=== PATIENT | female | born 1990 | race Caucasian/White ===

== ENCOUNTER 2017-09-18 01:00 | Emergency (ER) | payer MEDICAID ==
[~2017-09-18 01:00] MED LIST: PREN1CAP30 PO
--- NOTE | 2017-09-18 01:45 | PD ---
HPI Chief Complaint Contractions Date Seen: Sep 18, 2017 Time Seen: 01:41 Travel History International Travel<30 Days: No Contact w/Intl Traveler<30Days: No Known Affected Area: No History of Present Illness HPI 27-year-old who is at 36 weeks and 3 days complains of contractions off and on for the past 2 days. As they were persistent today she decided to come in for cervical check. Her last examination was Friday and cervix was 1 cm at that time. She's had a previous section and she is planning on a repeat elective section at term. She denies any antepartum complications Weeks Gestation: 36 (36.3) Para: 1 : 5 Miscarriage: 1 : 1 History Past Medical History Medical History: Denies Significant Hx Obstetric History Obstetric History section for failure to progress delivered at [facility] Past Surgical History Narrative Surgical Family History Family History: Negative Social History Alcohol Use: No Tobacco Use: Yes Substance Abuse: No Allergies-Medications (Allergen,Severity, Reaction): Coded Allergies: metronidazole (Unverified Allergy, Mild, NAUSEA/VOMITING, 09/15/17) Home Meds Active Scripts Without A W/Fe Fum-Fe (Provida Dha 16-16-1.25-110 mg) 1 Cap Cap, 1 TAB PO DAILY, #30 BOTTLE 11 Refills Prov:Kamryn Arnett 04/30/17 Review of Systems Except as stated in HPI: all other systems reviewed are Neg Physical Exam Narrative GENERAL: Well-nourished, well-developed patient. SKIN: Warm and dry. HEAD: Normocephalic and atraumatic. EYES: No scleral icterus. No injection or drainage. ENT: No nasal drainage noted. Mucous membranes pink. Airway patent. NECK: Supple, trachea midline. No JVD. CARDIOVASCULAR: Regular rate and rhythm without murmurs, gallops, or rubs. RESPIRATORY: Breath sounds equal bilaterally. No accessory muscle use. ABDOMEN/GI: Abdomen soft, non-tender, bowel sounds present, no rebound, no guarding Gravid to [36-] weeks size Fundal Height: [-] GENITOURINARY: External Genitalia: intact and normal in appearance BUS glands: [Normal-] Cervix: [-Posterior] Dilatation: [1-] Effacement: [-50] Station: [-3-] Presentation: [-Vertex] Membranes: [intact ] Uterine Contractions: [-Irregular] FHT's: Category: [1-] Baseline: [140-] Reactive: [Moderate-] Variability: [Moderate-] Decels: [Absent-] EXTREMITIES: No cyanosis or edema. BACK: Nontender without obvious deformity. No CVA tenderness. NEUROLOGICAL: Awake and alert. Motor and sensory grossly within normal limits. Five out of 5 muscle strength in all muscle groups. Normal speech. Data Data Vital Signs Reviewed: Yes [facility] Medical Record Reviewed: Yes Plan 27-year-old G at 36 weeks and 3 days with false labor, no cervical change since her exam on Friday She has an appointment for a consultation to set up for repeat Next appointment is next week on Diagnosis Diagnosis: Primary Impression: False labor before 37 completed weeks of gestation Additional Impressions: 36 weeks gestation of Previous section complicating , antepartum condition or complication Disposition: DISCHARGE HOME Barb Cabrera MD Sep 18, 2017 01:45
== END 2017-09-18 01:57 | disposition home or self-care (01) ==
LOC: HOBED 01:00
DX: O47.03 False labor before 37 completed weeks of gestation, third trimester (principal); O99.333 Smoking (tobacco) complicating pregnancy, third trimester; O34.219 Maternal care for unspecified type scar from previous cesarean delivery; Z3A.36 36 weeks gestation of pregnancy
CPT/HCPCS: 99281

== ENCOUNTER 2017-09-30 07:02 | Inpatient (IN) | payer MEDICAID ==
[~2017-09-30] VITALS: Ht 147.3 cm; Wt 55.0 kg
[2017-09-30] VITALS (9 sets, daily range): BP systolic 110–119; BP diastolic 63–80; PULSE 74–107; RESP 19
[2017-09-30] MEDS ORDERED: LACTATED RINGER'S 1000 ML INJ 1,000 ML IV PRN (07:44)
[2017-09-30] MEDS ORDERED: LACTATED RINGER'S 1000 ML INJ 1,000 ML IV SCH (07:44)
[2017-09-30] MEDS ORDERED: LIDOCAINE HCL 1% 50 ML VIAL INFIL PRN (07:45)
[2017-09-30] MEDS ORDERED: ONDANSETRON HCL 4 MG/2 ML VIAL IV PUSH PRN (07:45)
[2017-09-30] MEDS ORDERED: LIDOCAINE HCL 1% 50 ML VIAL I-DERMAL PRN (07:45)
[2017-09-30] MEDS ORDERED: OXYTOCIN 30 UNITS-500ML PREMIX 500 ML IV ONE (07:45)
[2017-09-30] MEDS ORDERED: CITRIC ACID-SODIUM CITRATE LIQ 30 ML UDC PO SCH (07:45)
[2017-09-30] MEDS ORDERED: MINERAL OIL 10 ML VIAL TOPICAL PRN (07:45)
[2017-09-30] MEDS ORDERED: SODIUM CHLORID 0.9% 500 ML INJ 500 ML IV PRN (07:45)
--- NOTE | 2017-09-30 08:02 | PD ---
HPI Chief Complaint ctx Date Seen: Sep 30, 2017 Time Seen: 07:48 Travel History International Travel<30 Days: No Contact w/Intl Traveler<30Days: No Known Affected Area: No History of Present Illness HPI Pt is a 27y/o @ 38.1wks. She has PNC at [facility]. She presents with c/o ctx which started after midnight. They initially were every 20m and have become increasingly more frequent. She has a h/o CSx1 in 2010. She is unsure on vs rCS. Weeks Gestation: 38 Para: 1 : 2 History Past Medical History Medical History: Denies Significant Hx Obstetric History Obstetric History 1. CS @ term (pt states she was 7cm for 1hr and was told by she needed a c/s ) 2. current Past Surgical History Narrative Surgical CS x1 wisdom tooth extraction Family History Family History: Negative Social History Alcohol Use: No Tobacco Use: No Substance Abuse: No Allergies-Medications (Allergen,Severity, Reaction): Coded Allergies: metronidazole (Unverified Allergy, Mild, NAUSEA/VOMITING, 09/15/17) Home Meds Active Scripts Without A W/Fe Fum-Fe (Provida Dha 16-16-1.25-110 mg) 1 Cap Cap, 1 TAB PO DAILY, #30 BOTTLE 11 Refills Prov:Kamryn Arnett 04/30/17 Review of Systems Except as stated in HPI: all other systems reviewed are Neg Physical Exam Narrative General: well developed, well nourished, no acute distress HEENT: normocephalic atraumatic, extraocular movements intact, neck supple Abdomen: soft, gravid, nontender, nondistended Uterus: fundus term Extremities: full range of motion Skin: normal coloration, no rashes, no suspicious skin lesions noted Neurologic: cranial nerves 2-12 grossly intact, normal muscle tone, normal gait Psychiatric: normal mood and affect, appropriate FHTs: 145, occasional variables, moderate variability, non-reactive [place]: ctx q3-6m Cvx: 4/100/-1 Data Data Vital Signs Reviewed: Yes Orders Orders Ob (2e) Additional Admit Info (09/30/17 07:42) Vital Signs (Adult) .ON ADMISSION (09/30/17 07:44) ^ Labor Status (09/30/17 07:44) ^ Non Stress Test (09/30/17 07:44) Admit To Inpatient (09/30/17 ) Vital Signs (Adult) .Per protocol (09/30/17 07:44) Heart (09/30/17 07:44) Amnioinfusion (09/30/17 07:44) Urinary Catheter Management .ONCE (09/30/17 07:44) Diet Liquid (09/30/17 Breakfast) Lactated Ringer's 1000 Ml Inj (Lr 1000 M (09/30/17 07:44) Lactated Ringer's 1000 Ml Inj (Lr 1000 M (09/30/17 07:44) Sodium Chlorid 0.9% 500 Ml Inj (Ns 500 M (09/30/17 07:45) Sodium Chlor 0.9% 1000 Ml Inj (Ns 1000 M (09/30/17 08:04) Lidocaine 1% Inj (50 Ml) (Xylocaine 1% I (09/30/17 07:45) Citric Acid-Sodium Citrate Liq (Bicitra (09/30/17 07:45) Ondansetron Inj (Zofran Inj) (09/30/17 07:45) Fentanyl Inj (Fentanyl Inj) (09/30/17 07:45) Fentanyl Inj (Fentanyl Inj) (09/30/17 07:45) Complete Blood Count With Diff (09/30/17 07:44) Hold Clot (09/30/17 07:44) Abo/Rh Blood Type (09/30/17 07:44) Urinalysis - C+S If Indicated (09/30/17 07:44) Drug Screen, Random Urine (09/30/17 07:44) Resp Oxygen Non Rebreathe Mask (09/30/17 ) ^ Epidural / Intrathecal Infus (09/30/17 07:44) Oxytocin 30 Units-500ml Premix (Pitocin (09/30/17 07:45) Lidocaine 1% Inj (50 Ml) (Xylocaine 1% I (09/30/17 07:45) Light Mineral Oil (Muri-Lube Oil) (09/30/17 07:45) Inpatient Certification (09/30/17 ) Group B Strep: Negative MDM Plan 27y/o @ 38.1wks in active labor with h/o CS x1 -- admit for: -- analgesia: epidural PRN -- GBS: neg Counseling: Pt counseled on R/B/A of rCS vs . For pt aware of <1% risk of uterine rupture which is associated with high risk of neurological compromise or and risk of maternal hemorrhage or . Discussed need for continued monitoring in labor. Discussed highest chance of successful if spontaneous labor. She voiced understanding. Diagnosis Diagnosis: Primary Impression: 38 weeks gestation of Additional Impressions: Uterine contractions during History of delivery, currently Nabil Mcgee MD Sep 30, 2017 08:02
[2017-09-30] MEDS ORDERED: SODIUM CHLOR 0.9% 1000 ML INJ 1,000 ML IV PRN (08:04)
[2017-09-30 08:50] LABS: AUTOMATED NEUTROPHIL # 13.5 TH/MM3 (1.8-7.7); BASOPHIL # 0.1 TH/MM3 (0-0.2); BASOPHIL % 0.7 % (0.0-2.0); EOSINOPHIL # 0.2 TH/MM3 (0-0.4); EOSINOPHIL % 1.3 % (0.0-4.0); HEMATOCRIT 35.7 % (35.0-46.0); HEMOGLOBIN 12.3 GM/DL (11.6-15.3); LYMPH % 14.1 % (9.0-44.0); LYMPHOCYTE # 2.4 TH/MM3 (1.0-4.8); MEAN CORPUSCULAR HEMOGLOBIN 32.6 PG (27.0-34.0); MEAN CORPUSCULAR HGB CONC 34.4 % (32.0-36.0); MEAN PLATELET VOLUME 9.3 FL (7.0-11.0); MONO % 5.6 % (0.0-8.0); NEUT % 78.3 % (16.0-70.0); PLATELET COUNT 285 TH/MM3 (150-450); RED BLOOD COUNT 3.76 MIL/MM3 (4.00-5.30); RED CELL DISTRIBUTION WIDTH 14.2 % (11.6-17.2); WHITE BLOOD COUNT 17.2 TH/MM3 (4.0-11.0)
[2017-09-30 08:53] LABS: BACTERIA, URINE RARE /hpf; BILIRUBIN, URINE NEG (NEG); BLOOD, URINE MOD (NEG); GLUCOSE,URINE NEG (NEG); HYALINE CAST, URINE 1 /lpf (RARE); KETONE, URINE NEG (NEG); MUCUS URINE FEW /lpf (OCC); NITRITE,URINE NEG (NEG); PH, URINE 6.5 (5.0-8.5); SQUAMOUS EPITHELIAL CELL URINE 5 /hpf (0-5); TRANSITIONAL EPI CELLS, URINE <1 /hpf; URINE COLOR YELLOW (YELLW/STRAW); URINE LEUKOCYTE ESTERASE MOD (NEG); WHITE BLOOD CELL CLUMPS RARE
[2017-09-30] MEDS ORDERED: fentaNYL 2MCG-BUPIV 0.125% INJ 100 ML ONE (09:14)
[2017-09-30] MEDS ORDERED: NO SYSTEM NARCOTICS PRN (10:45)
[2017-09-30] MEDS ORDERED: ePHEDrine/NS 25 MG/5 ML SYRINGE IV PUSH PRN (10:45)
[2017-09-30] MEDS ORDERED: fentaNYL 2MCG-BUPIV 0.125% 100 ML EPIDURAL SCH (10:45)
[2017-09-30] MEDS ORDERED: DO NOT ADMINISTER ANTICOAGULANTS PRN (10:45)
--- NOTE | 2017-09-30 11:25 | HHI.HP ---
HPI Chief Complaint labor, Date Seen: Sep 30, 2017 (Laura Carreon MD R2) Travel History International Travel<30 Days: No Contact w/Intl Traveler<30Days: No (Laura Carreon MD R2) History of Present Illness HPI Pt is a 27y/o @ 38.1wks. She has PNC at [facility]. She presents with c/o ctx which started after midnight. They initially were every 20m and have become increasingly more frequent. She has a h/o CSx1 in 2010. She is unsure on vs rCS. Weeks Gestation: 38 Weeks Gestation: 1 Para: 5 (Laura Carreon MD R2) History Obstetric History Obstetric History 2SAB 1EAB CS @ term (pt states she was 7cm for 1hr and was told by MD she needed a c/s) (Laura Carreon MD R2) Past Surgical History Narrative Surgical CS x1 wisdom tooth extraction (Laura Carreon MD R2) Family History Family History: Negative (Laura Carreon MD R2) Social History Alcohol Use: No Tobacco Use: No Substance Abuse: No (Laura Carreon MD R2) Allergies-Medications (Allergen,Severity, Reaction): Coded Allergies: metronidazole (Unverified Allergy, Mild, NAUSEA/VOMITING, 09/30/17) Home Meds Discontinued Scripts Without A W/Fe Fum-Fe (Provida Dha 16-16-1.25-110 mg) 1 Cap Cap, 1 TAB PO DAILY, #30 BOTTLE 11 Refills Prov:Kamryn Arnett 04/30/17 Review of Systems Except as stated in HPI: all other systems reviewed are Neg (Laura Carreon MD R2) Physical Exam Vital Signs Date Time Temp Pulse Resp B/P (MAP) Pulse Ox O2 Delivery O2 Flow Rate FiO2 09/30/17 09:35 18 09/30/17 08:10 99 09/30/17 08:06 103 119/76 (90) 09/30/17 08:05 107 09/30/17 08:00 86 Narrative General: well developed, well nourished, no acute distress HEENT: normocephalic atraumatic, extraocular movements intact, neck supple Abdomen: soft, gravid, nontender, nondistended Uterus: fundus term Extremities: full range of motion Skin: normal coloration, no rashes, no suspicious skin lesions noted Neurologic: cranial nerves 2-12 grossly intact, normal muscle tone, normal gait Psychiatric: normal mood and affect, appropriate FHTs: 140s, occasional variables, moderate variability, non-reactive [place]: ctx q3-6m Cvx: 5-6/100/-1 (Laura Carreon MD R2) Caprini VTE Risk Assessment Caprini VTE Risk Assessment: Mod/High Risk (score >= 2) () Caprini Risk Assessment Model Point Value = 1 Point Value = 2 Point Value = 3 Point Value = 5 Age 41-60 Minor surgery BMI > 25 kg/m2 Swollen legs Varicose veins or History of unexplained or recurrent spontaneous Oral contraceptives or hormone replacement Sepsis (< 1 month) Serious lung disease, including pneumonia (< 1 month) Abnormal pulmonary function Acute myocardial infarction Congestive heart failure (< 1 month) History of inflammatory bowel disease Medical patient at bed rest Age 61-74 Arthroscopic surgery Major open surgery (> 45 min) Laparoscopic surgery (> 45 min) Malignancy Confined to bed (> 72 hours) Immobilizing plaster cast Central venous access Age >= 75 History of VTE Family history of VTE Factor V Leiden Prothrombin [id number] Lupus anticoagulant Anticardiolipin antibodies Elevated serum homocysteine Heparin-induced thrombocytopenia Other congenital or acquired thrombophilia Stroke (< 1 month) Elective arthroplasty Hip, pelvis, or leg fracture Acute spinal cord injury (< 1 month) Prophylaxis Regimen Total Risk Factor Score Risk Level Prophylaxis Regimen 0-1 Low Early ambulation 2 Moderate Order ONE of the following: *Sequential Compression Device (SCD) *Heparin 5000 units SQ BID 3-4 Higher Order ONE of the following medications: *Heparin 5000 units SQ TID *Enoxaparin/Lovenox 40 mg SQ daily (WT < 150 kg, CrCl > 30 mL/min) *Enoxaparin/Lovenox 30 mg SQ daily (WT < 150 kg, CrCl > 10-29 mL/min) *Enoxaparin/Lovenox 30 mg SQ BID (WT < 150 kg, CrCl > 30 mL/min) AND/OR *Sequential Compression Device (SCD) 5 or more Highest Order ONE of the following medications: *Heparin 5000 units SQ TID (Preferred with Epidurals) *Enoxaparin/Lovenox 40 mg SQ daily (WT < 150 kg, CrCl > 30 mL/min) *Enoxaparin/Lovenox 30 mg SQ daily (WT < 150 kg, CrCl > 10-29 mL/min) *Enoxaparin/Lovenox 30 mg SQ BID (WT < 150 kg, CrCl > 30 mL/min) AND *Sequential Compression Device (SCD) (Laura Carreon MD R2) Data Data Vital Signs Reviewed: Yes (wnl) Orders Orders Ob (2e) Additional Admit Info (09/30/17 07:42) Vital Signs (Adult) .ON ADMISSION (09/30/17 07:44) ^ Labor Status (09/30/17 07:44) ^ Non Stress Test (09/30/17 07:44) Admit To Inpatient (09/30/17 ) Vital Signs (Adult) .Per protocol (09/30/17 07:44) Heart (09/30/17 07:44) Amnioinfusion (09/30/17 07:44) Urinary Catheter Management .ONCE (09/30/17 07:44) Diet Liquid (09/30/17 Breakfast) Lactated Ringer's 1000 Ml Inj (Lr 1000 M (09/30/17 07:44) Lactated Ringer's 1000 Ml Inj (Lr 1000 M (09/30/17 07:44) Sodium Chlorid 0.9% 500 Ml Inj (Ns 500 M (09/30/17 07:45) Sodium Chlor 0.9% 1000 Ml Inj (Ns 1000 M (09/30/17 08:04) Lidocaine 1% Inj (50 Ml) (Xylocaine 1% I (09/30/17 07:45) Citric Acid-Sodium Citrate Liq (Bicitra (09/30/17 07:45) Ondansetron Inj (Zofran Inj) (09/30/17 07:45) Fentanyl Inj (Fentanyl Inj) (09/30/17 07:45) Fentanyl Inj (Fentanyl Inj) (09/30/17 07:45) Complete Blood Count With Diff (09/30/17 07:44) Hold Clot (09/30/17 07:44) Abo/Rh Blood Type (09/30/17 07:44) Urinalysis - C+S If Indicated (09/30/17 07:44) Drug Screen, Random Urine (09/30/17 07:44) Resp Oxygen Non Rebreathe Mask (09/30/17 ) ^ Epidural / Intrathecal Infus (09/30/17 07:44) Oxytocin 30 Units-500ml Premix (Pitocin (09/30/17 07:45) Lidocaine 1% Inj (50 Ml) (Xylocaine 1% I (09/30/17 07:45) Light Mineral Oil (Muri-Lube Oil) (09/30/17 07:45) Inpatient Certification (09/30/17 ) Urine Culture (09/30/17 07:15) Fentanyl 2mcg-Bupiv 0.125% Inj (Fentanyl (09/30/17 09:14) ^ Place On Chart (09/30/17 ) ^ Medication Indications (09/30/17 ) Consent (09/30/17 ) ^ No Systemic Narcotics (09/30/17 ) ^ Call Anesthesiologist (09/30/17 ) ^ Discontinue Epidural Cathete (09/30/17 ) Anticoagulant Alert (09/30/17 ) ^ Epidural Alert (09/30/17 ) Misc Nursing Information (09/30/17 10:45) Misc Nursing Information (09/30/17 10:45) Fentanyl Inj (Fentanyl Inj) (09/30/17 10:45) Fentanyl 2mcg-Bupiv 0.125% Inj (Fentanyl (09/30/17 10:45) Ephedrine/Ns 25 Mg/5 Ml Syr (Ephedrine/N (09/30/17 10:45) Labs Laboratory Tests Test 09/30/17 07:15 09/30/17 07:50 Urine Color YELLOW Urine Turbidity CLEAR Urine pH 6.5 Urine Specific [place] 1.018 Urine Protein TRACE Urine Glucose (UA) NEG Urine Ketones NEG Urine Occult Blood MOD Urine Nitrite NEG Urine Bilirubin NEG Urine Urobilinogen LESS THAN 2.0 Urine Leukocyte Esterase MOD Urine RBC 4 Urine WBC 9 Urine WBC Clumps RARE Urine Squamous Epithelial Cells 5 Urine Transitional Epithelial Cells <1 Urine Bacteria RARE Urine Hyaline Casts 1 Urine Mucus FEW Microscopic Urinalysis Comment CULTURE INDICATED Urine Opiates Screen NEG Urine Barbiturates Screen NEG Urine Amphetamines Screen NEG Urine Benzodiazepines Screen NEG Urine Cocaine Screen NEG Urine Cannabinoids Screen POS White Blood Count 17.2 Red Blood Count 3.76 Hemoglobin 12.3 Hematocrit 35.7 Mean Corpuscular Volume 95.0 Mean Corpuscular Hemoglobin 32.6 Mean Corpuscular Hemoglobin Concent 34.4 Red Cell Distribution Width 14.2 Platelet Count 285 Mean Platelet Volume 9.3 Neutrophils (%) (Auto) 78.3 Lymphocytes (%) (Auto) 14.1 Monocytes (%) (Auto) 5.6 Eosinophils (%) (Auto) 1.3 Basophils (%) (Auto) 0.7 Neutrophils # (Auto) 13.5 Lymphocytes # (Auto) 2.4 Monocytes # (Auto) 1.0 Eosinophils # (Auto) 0.2 Basophils # (Auto) 0.1 CBC Comment DIFF FINAL Differential Comment Date/Time Source Procedure Growth Status 09/30/17 07:15 Urine Clean Catch Urine Culture Pending Received (Laura Carreon MD R2) Assessment/Plan Assessment and Plan 27 y/o [id number] @ 38.1 weeks in active labor with h/o CS x1. Intrauterine Routine antepartum care Analgesia: epidural PRN Rubella NON-IMMUNE GBS: neg RUQ pain early : work-up with labs negative. US showing normal gallbladder and ducts, has non-obstructing stone Tobacco use complicating Hx CS desiring vaginal delivery Expect vaginal delivery Admitted in spontaneous labor Counseling: Pt counseled on R/B/A of rCS vs . For pt aware of <1% risk of uterine rupture which is associated with high risk of neurological compromise or and risk of maternal hemorrhage or . Discussed need for continued monitoring in labor. Discussed highest chance of successful if spontaneous labor. She voiced understanding at time of admission. Discharge Planning 1-3 days after delivery (Laura Carreon MD R2) Attending Attestation Patient seen and evaluated with resident under direct supervision, agree with assessment and plan. (Howard Lambert MD) Laura Carreon MD R2 Sep 30, 2017 11:25 Howard Lambert MD Sep 30, 2017 12:47
--- NOTE | 2017-09-30 14:40 | PD.LABORPN ---
Subjective Subjective AROM @1428 Objective Vital Signs Vital Signs Date Time Temp Pulse Resp B/P (MAP) Pulse Ox O2 Delivery O2 Flow Rate FiO2 09/30/17 12:25 74 09/30/17 12:20 78 09/30/17 12:15 78 110/63 (79) 09/30/17 12:15 78 09/30/17 09:35 18 09/30/17 08:10 99 09/30/17 08:06 103 119/76 (90) 09/30/17 08:05 107 09/30/17 08:00 86 Objective Pelvic Exam: Cervix: midline Dilatation: 9-10 Effacement: 100% Station: 0 Presentation: Vertex Membranes: Ruptured Uterine Contractions: Every 3 -5 minutes FHT's: Category: 1 Baseline: 150 Reactive: Yes Variability: Moderate Decels: None Weeks Gestation: 1 Artificial ROM date: Sep 30, 2017 Artifical ROM time: 14:28 Assessment/Plan Assessment and Plan Expectant management Melyssa García Dr., MD R1 Sep 30, 2017 14:40
[2017-09-30] MEDS ORDERED: DIPHTH/TETANUS/ACEL PERTUSSIS (BOOSTER) 0.5 ML VIAL/PFS IM ONE (16:00)
[2017-09-30] MEDS ORDERED: MEASLES, MUMPS, RUBELLA VACCINE 0.5 ML VIAL SQ ONE (16:00)
--- NOTE | 2017-09-30 17:13 | PD.OB.DELI ---
Weeks gestation: 38 Artificial ROM date: Sep 30, 2017 Artifical ROM time: 14:28 Anesthesia: Epidural Episiotomy: None Vaginal Delivery: Normal, Spontaneous, Presentation: Occiput anterior, Vertex Nuchal Cord: x1 Delayed cord clamping (45 sec): Yes : Male, Single Delivery date: Sep 30, 2017 Delivery time: 16:47 One Minute : 9 Five Minute : 9 Weight: 2785 Placenta: Spontaneous delivery, Intact, Cord pH Laceration: Vaginal laceration (2 lacerations, one at 11 o'clock and one at 2' o clock), 1 deg (labial laceration) Repair: Vicryl interrupted Estimated blood loss: 250 Additional Information At 1647, this 27 y/o , now P3, delivered vaginally under epidural anesthesia. was delivered after Mom gave adequate pushing with contractions. There was a loose nuchal cord x1. was placed on patient's abdomen after delivery. The cord was clamped and cut after 45 seconds. Placenta was delivered intact w/normal 3 vessel cord within 30 min. Sample of blood was obtained for blood cord gas. Fundus was firm with massage and IV Pit. There were only 2 superficial vaginal lacerations (one at 11'oclock, one at 2 o'clock) . One stitch was placed w/3-0 vicryl at 11-o'clock. Blood estimation was about 250 cc. Male weighs 2785 g, and scores are 9/9. Both mom and are recovering well. Dr. Lambert was present for delivery and Dr. Reyes assisted w/delivery. (Melyssa Reyes MD R1) Additional Information Patient seen and evaluated with resident under direct supervision, agree with assessment and plan. (Howard Lambert MD) Melyssa Reyes MD R1 Sep 30, 2017 17:13 Howard Lambert MD Sep 30, 2017 19:19
[2017-09-30] MEDS ORDERED: ACETAMINOPHEN 325 MG TAB PO PRN (17:30)
[2017-09-30] MEDS ORDERED: ONDANSETRON ODT 4 MG TAB PO PRN (17:30)
[2017-09-30] MEDS ORDERED: SODIUM CHLORIDE 0.9% FLUSH 10 ML FLUSH IV FLUSH PRN (17:30)
[2017-09-30] MEDS ORDERED: OXYTOCIN 30 UNITS-500ML PREMIX 500 ML IV SCH (17:30)
[2017-09-30] MEDS ORDERED: ZOLPIDEM TARTRATE 5 MG TAB PO PRN (17:30)
[2017-09-30] MEDS ORDERED: ALUMINUM/MAGNESIUM/SIMETH 30 ML CUP PO PRN (17:30)
[2017-09-30] MEDS ORDERED: SODIUM CHLORIDE 0.9% FLUSH 10 ML FLUSH IV FLUSH SCH (21:00)
[2017-09-30] MEDS: IBUPROFEN 800 MG TAB PO PRN (22:05)
[2017-10-01] MEDS: BENZOCAINE 20% TOPICAL SPRAY 60 ML CAN TOPICAL PRN (03:00)
[2017-10-01] MEDS: WITCH HAZEL 50%/GLYCERIN 12.5% 40 PAD JAR TOPICAL PRN (03:00)
[2017-10-01 08:00] VITALS: BP 103/59; PULSE 72; RESP 16; TEMP 98
[2017-10-01] MEDS: IBUPROFEN 800 MG TAB PO PRN ×2 (08:01→16:17)
--- NOTE | 2017-10-01 08:57 | HHI.OB ---
Subjective Post Day: 1 Remarks day #1. AFVSS overnight. Pain controlled. Decreased lochia. Denies dysuria. No breast tenderness. She is feeding the baby via breast. Appetite good. No nausea or vomiting. + flatus. Ambulating well. Denies calf pain, shortness of breath, or cough. Otherwise, she is doing well this morning and has no other complaints. (Laura Carreon MD R2) Remarks Patient seen and evaluated with resident under direct supervision, agree with assessment and plan. (Howard Lambert MD) Objective Vitals/I&O Vital Signs Date Time Temp Pulse Resp B/P (MAP) Pulse Ox O2 Delivery O2 Flow Rate FiO2 10/01/17 08:00 72 103/59 (74) 10/01/17 08:00 98.0 16 09/30/17 19:17 19 09/30/17 19:00 88 117/80 (92) 09/30/17 12:25 74 09/30/17 12:20 78 09/30/17 12:15 78 110/63 (79) 09/30/17 12:15 78 09/30/17 10:00 18 09/30/17 09:35 18 Objective Remarks GENERAL: Well-nourished, well-developed female. CARDIOVASCULAR: Regular rate and rhythm without murmurs, gallops, or rubs. RESPIRATORY: Breath sounds equal bilaterally. No accessory muscle use. ABDOMEN/GI: Abdomen soft, non-tender. Fundus: Firm, non-tender at umbilicus. GENITOURINARY: Light to moderate bleeding. EXTREMITIES: No cyanosis or edema, non-tender, without signs of DVT. Medications and IVs Current Medications Medications (Trade) Dose Ordered Sig/Miky Route Start Time Stop Time Status Last Admin Lactated Ringer's 1,000 ml @ 125 mls/hr Q8H IV 09/30/17 07:44 09/30/17 08:44 Lactated Ringer's 1,000 ml @ 3,000 mls/hr Q20M PRN IV 09/30/17 07:44 Sodium Chloride 500 ml @ 1,000 mls/hr ONCE PRN IV 09/30/17 07:45 Sodium Chloride 1,000 ml @ 100 mls/hr Q10H PRN IV 09/30/17 08:04 (Xylocaine 1% Inj (50 ml)) 0.1 ml UNSCH X1 PRN I-DERMAL 09/30/17 07:45 10/03/17 07:44 (Bicitra Liq) 30 ml DUCK BILL OPERATOR PO 09/30/17 07:45 10/04/17 07:44 (Zofran Inj) 4 mg Q6H PRN IV PUSH 09/30/17 07:45 09/30/17 19:16 (fentaNYL INJ) 50 mcg Q1H PRN IV PUSH 09/30/17 07:45 (fentaNYL INJ) 100 mcg Q1H PRN IV PUSH 09/30/17 07:45 09/30/17 08:58 (Xylocaine 1% Inj (50 ml)) 10 ml UNSCH X1 PRN INFIL 09/30/17 07:45 10/02/17 07:44 (Muri-Lube Oil) 10 ml UNSCH PRN TOPICAL 09/30/17 07:45 Miscellaneous Information No systemic narcotics to be given except... UNSCH PRN .XX 09/30/17 10:45 10/01/17 10:44 Miscellaneous Information DO NOT ADMINISTER ANY ANTICOAGUL... UNSCH PRN .XX 09/30/17 10:45 10/01/17 10:44 Fentanyl/ Bupivacaine HCl 100 ml @ 0 mls/hr TITRATE EPIDURAL 09/30/17 10:45 (ePHEDrine/NS 25 MG/5 ML SYR) 10 mg UNSCH PRN IV PUSH 09/30/17 10:45 10/01/17 10:44 (NS Flush) 2 ml BID IV FLUSH 09/30/17 21:00 (NS Flush) 2 ml UNSCH PRN IV FLUSH 09/30/17 17:30 (Tylenol) 650 mg Q4H PRN PO 09/30/17 17:30 (Motrin) 800 mg Q8H PRN PO 09/30/17 17:30 10/01/17 08:01 (Tucks Pads) 1 applic QID PRN TOPICAL 09/30/17 17:30 10/01/17 03:00 (Ambien) 5 mg HS PRN PO 09/30/17 17:30 (Mag-Al Plus Susp Liq) 15 ml Q8H PRN PO 09/30/17 17:30 (Zofran Odt) 4 mg Q6H PRN PO 09/30/17 17:30 (Americaine 20% Top Spr) 1 spray Q4H PRN TOPICAL 10/01/17 02:00 10/01/17 03:00 (Laura Carreon MD R2) Assessment/Plan Assessment and Plan 27 y/o female who is PPD #1 after (hx CS x 1, admitted in spontaneous labor ). No complications. -Continue routine care. -Acetaminophen and Motrin PRN pain. -Encouraged OOB. Advised pelvic rest for 6 wks. -Re: ctrl, will discuss tomorrow -Anticipate discharge tomorrow. Tobacco use complicating BART Lambert (Laura Carreon MD R2) Laura Carreon MD R2 Oct 01, 2017 08:57 Howard Lambert MD Oct 05, 2017 11:31
[2017-10-01] MEDS ORDERED: NICOTINE 14 MG/24 HR PATCH T-DERMAL SCH (15:00)
[2017-10-01] MEDS ORDERED: REMOVE OLD PATCH T-DERMAL SCH (15:00)
[2017-10-01 20:00] VITALS: BP 107/75; PULSE 82; RESP 18; TEMP 98.1
[2017-10-02] MEDS: IBUPROFEN 800 MG TAB PO PRN ×2 (00:43→12:46)
[2017-10-02 08:00] VITALS: BP 108/61; PULSE 62; RESP 12; TEMP 97.9
--- NOTE | 2017-10-02 08:37 | HHI.OB ---
Subjective Post Day: 2 Remarks day # 2 s/pVBAC. AFVSS overnight. Pain controlled. Decreased lochia. Denies dysuria. She is feeding the baby via bottle. Appetite good. No nausea or vomiting. + flatus. Ambulating well. Denies calf pain, shortness of breath, or cough. Otherwise, she is doing well this morning and has no other complaints. Objective Vitals/I&O Vital Signs Date Time Temp Pulse Resp B/P (MAP) Pulse Ox O2 Delivery O2 Flow Rate FiO2 10/01/17 20:00 98.1 82 18 107/75 (86) Objective Remarks GENERAL: Well-nourished, well-developed female. CARDIOVASCULAR: Regular rate and rhythm without murmurs, gallops, or rubs. RESPIRATORY: Breath sounds equal bilaterally. No accessory muscle use. ABDOMEN/GI: Abdomen soft, non-tender. Fundus: Firm, non-tender at umbilicus. GENITOURINARY: Light to moderate bleeding. EXTREMITIES: No cyanosis or edema, non-tender, without signs of DVT. Medications and IVs Current Medications Medications (Trade) Dose Ordered Sig/Miky Route Start Time Stop Time Status Last Admin Lactated Ringer's 1,000 ml @ 125 mls/hr Q8H IV 09/30/17 07:44 09/30/17 08:44 Lactated Ringer's 1,000 ml @ 3,000 mls/hr Q20M PRN IV 09/30/17 07:44 Sodium Chloride 500 ml @ 1,000 mls/hr ONCE PRN IV 09/30/17 07:45 Sodium Chloride 1,000 ml @ 100 mls/hr Q10H PRN IV 09/30/17 08:04 (Xylocaine 1% Inj (50 ml)) 0.1 ml UNSCH X1 PRN I-DERMAL 09/30/17 07:45 10/03/17 07:44 (Bicitra Liq) 30 ml PEST CONTROLLER PO 09/30/17 07:45 10/04/17 07:44 (Zofran Inj) 4 mg Q6H PRN IV PUSH 09/30/17 07:45 09/30/17 19:16 (fentaNYL INJ) 50 mcg Q1H PRN IV PUSH 09/30/17 07:45 (fentaNYL INJ) 100 mcg Q1H PRN IV PUSH 09/30/17 07:45 09/30/17 08:58 (Muri-Lube Oil) 10 ml UNSCH PRN TOPICAL 09/30/17 07:45 Fentanyl/ Bupivacaine HCl 100 ml @ 0 mls/hr TITRATE EPIDURAL 09/30/17 10:45 (NS Flush) 2 ml BID IV FLUSH 09/30/17 21:00 (NS Flush) 2 ml UNSCH PRN IV FLUSH 09/30/17 17:30 (Tylenol) 650 mg Q4H PRN PO 09/30/17 17:30 (Motrin) 800 mg Q8H PRN PO 09/30/17 17:30 10/02/17 00:43 (Tucks Pads) 1 applic QID PRN TOPICAL 09/30/17 17:30 10/01/17 03:00 (Ambien) 5 mg HS PRN PO 09/30/17 17:30 (Mag-Al Plus Susp Liq) 15 ml Q8H PRN PO 09/30/17 17:30 (Zofran Odt) 4 mg Q6H PRN PO 09/30/17 17:30 (Americaine 20% Top Spr) 1 spray Q4H PRN TOPICAL 10/01/17 02:00 10/01/17 03:00 (Habitrol 14 Mg Patch.24 Hr) 1 patch DAILY T-DERMAL 10/01/17 15:00 10/01/17 18:00 Miscellaneous Information 1 DAILY T-DERMAL 10/01/17 15:00 Assessment/Plan Assessment and Plan 27 y/o female who is PPD #2 after (hx CS x 1, admitted in spontaneous labor ). No complications. -Continue routine care. -Acetaminophen and Motrin PRN pain. -Encouraged OOB. Advised pelvic rest for 6 wks. -Re: ctrl, desires progestin pill -Anticipate discharge today DW Melyssa Rodriguez MD R1 Oct 02, 2017 08:37
[2017-10-02] MEDS ORDERED: [UNRECOGNIZED DRUG - CODE] PO (08:48)
[2017-10-02] MEDS ORDERED: IBUP1TAB7 PO (08:54)
--- NOTE | 2017-10-02 08:56 | HHI.DCPOC ---
Discharge Care Plan Diagnosis: (1) , delivered Report Symptoms to Your Doctor -Temperature above 100.5 degrees -Redness, of incision or excessive or foul smelling drainage -Unusual pain or calf pain -Increased vaginal bleeding -Painful or difficulty urinating -Feelings of extreme sadness or anxiety after 2 weeks Goals to Promote Your Health * To prevent worsening of your condition and complications * To maintain your health at the optimal level DO NOT INSERT ANYTHING INTO VAGINA FOR 6 WEEKS Directions to Meet Your Goals Take your medications as prescribed Follow your dietary instruction Follow activity as directed Ensure plenty of rest for recovery Drink fluids for hydration Keep your appointments as scheduled Take your immunizations and boosters as scheduled If your symptoms worsen call your PCP, if no PCP go to Urgent Care Center or Emergency Room Smoking is Dangerous to Your Health. Avoid second hand smoke Call the 24-hour crisis hotline for domestic abuse at Melyssa Reyes MD R1 Oct 02, 2017 08:56
[2017-10-02] MEDS: BENZOCAINE 20% TOPICAL SPRAY 60 ML CAN TOPICAL PRN (12:46)
[2017-10-02] MEDS: WITCH HAZEL 50%/GLYCERIN 12.5% 40 PAD JAR TOPICAL PRN (12:46)
== END 2017-10-02 16:30 | disposition home or self-care (01) | DRG 775 ==
LOC: HOBED 07:02 → H2EB 07:46 → H1EA 19:44
PROVIDERS: ADMIT Obstetrics & Gynecology; ATTEND Obstetrics & Gynecology
PROC: 10E0XZZ Delivery of Products of Conception, External Approach (ICD-10-PCS; principal; 2017-09-30)
PROC: 0UQGXZZ Repair Vagina, External Approach (ICD-10-PCS; 2017-09-30)
PROC: 10907ZC Drainage of Amniotic Fluid, Therapeutic from Products of Conception, Via Natural or Artificial Opening (ICD-10-PCS; 2017-09-30)
PROC: 00HU33Z Insertion of Infusion Device into Spinal Canal, Percutaneous Approach (ICD-10-PCS; 2017-09-30)
PROC: 3E0R3BZ Introduction of Anesthetic Agent into Spinal Canal, Percutaneous Approach (ICD-10-PCS; 2017-09-30)
DX: O99.334 Smoking (tobacco) complicating childbirth (principal); F17.210 Nicotine dependence, cigarettes, uncomplicated; O34.219 Maternal care for unspecified type scar from previous cesarean delivery; O71.4 Obstetric high vaginal laceration alone; Z37.0 Single live birth; O69.81X0 Labor and delivery complicated by cord around neck, without compression, not applicable or unspecified; Z3A.38 38 weeks gestation of pregnancy
CPT/HCPCS: 59025; 80307; 81001; 85025; 86900; 86901; 87086; J2405; J3010; J7120